=== PATIENT | male | born 1955 | race Caucasian/White ===

== ENCOUNTER 2024-03-09 09:44 | Outpatient (CLI) | payer MEDICARE | END 2024-03-09 09:45 | disposition home or self-care (01) | LOC: CSHULT 09:44 | PROVIDERS: ATTEND Student in an Organized Health Care Education/Training Program | DX: R10.32 Left lower quadrant pain (principal); Z85.528 Personal history of other malignant neoplasm of kidney; N28.1 Cyst of kidney, acquired | CPT/HCPCS: 76700 ==